=== PATIENT | female | born 1950 | race Caucasian/White ===

== ENCOUNTER → 2017-03-14 | Outpatient (CLI) | payer MEDICARE, OTHER ==
[~2017-03-14] MED LIST: ALBU8.5H IH; ALPR0.255 PO; ASPI-1093 PO; ATOR40TA28 PO; BREO PO; CARI350 PO; CETI-193 PO; CHOL200035 PO; CHOL500050 PO; CYCL10 PO; DESV50TA PO; DICY20 PO; ESOM20CA31 PO; EZET10 PO; FURO40 PO; HYDR-3965 PO; INSLAN SQ; INSU100V9 SQ; ISOS60TA4 PO; LEVO88TA4 PO; LISI-662 PO; METF500T PO; METF500T4 PO; METO-296 PO; METO100XL PO; MOME17N NS; SITA100 PO; TEMA15CA PO; TICA90TA PO; TIOT185 IH
[2017-03-14 13:49] LABS: CALCIUM, TOTAL 10.1 mg/dL (8.8-10.5); CREATININE 1.41 mg/dL (0.60-1.30); POTASSIUM 5.3 mmol/L (3.5-5.1)
== END | disposition home or self-care (01) ==
LOC: LABPV 12:01
PROVIDERS: ATTEND Internal Medicine Critical Care Medicine
DX: R91.1 Solitary pulmonary nodule (principal)

== ENCOUNTER → 2017-03-21 | Outpatient (CLI) | payer MEDICARE, OTHER ==
[~2017-03-21] VITALS: Ht 172.7 cm; Wt 101.5 kg
[~2017-03-21] MED LIST changes: +CHL25 PO; +ELUX75TA PO; +FENO160 PO; +LOPE2 PO; +MAGN250T2 PO; +SPIR25 PO; +VITA400T9 PO; +VITAMIN B12 PO
[2017-03-21 11:20] VITALS: BP 126/68
== END | disposition home or self-care (01) ==
LOC: SRCNTR 10:58
PROVIDERS: ATTEND Internal Medicine Critical Care Medicine
DX: I10 Essential (primary) hypertension (principal); J44.1 Chronic obstructive pulmonary disease with (acute) exacerbation; R91.1 Solitary pulmonary nodule; I25.2 Old myocardial infarction; I25.10 Atherosclerotic heart disease of native coronary artery without angina pectoris; E11.9 Type 2 diabetes mellitus without complications; E78.5 Hyperlipidemia, unspecified; F32.9 Major depressive disorder, single episode, unspecified; Z87.891 Personal history of nicotine dependence
CPT/HCPCS: G0463

== ENCOUNTER → 2017-07-26 | Outpatient (CLI) | payer MEDICARE, OTHER ==
[~2017-07-26] VITALS: Ht 172.7 cm; Wt 100.4 kg
[~2017-07-26] MED LIST changes: -ALBU8.5H IH; +ALBU8.5H8 IH; -ASPI-1093 PO; +ASPI-1182 PO; -CHOL500050 PO; +ROSU20 PO
[2017-07-26 13:59] VITALS: BP 115/61
== END | disposition home or self-care (01) ==
LOC: SRCNTR 13:37
PROVIDERS: ATTEND Internal Medicine Critical Care Medicine
DX: J44.1 Chronic obstructive pulmonary disease with (acute) exacerbation (principal); R91.1 Solitary pulmonary nodule; I25.10 Atherosclerotic heart disease of native coronary artery without angina pectoris; I10 Essential (primary) hypertension; I25.2 Old myocardial infarction; E78.5 Hyperlipidemia, unspecified; F32.9 Major depressive disorder, single episode, unspecified
CPT/HCPCS: G0463

== ENCOUNTER → 2018-07-04 | Outpatient (CLI) | payer MEDICARE, OTHER ==
[~2018-07-04] VITALS: Ht 172.7 cm; Wt 94.0 kg
[~2018-07-04] MED LIST changes: +METF-960 PO; -METF500T4 PO
[2018-07-04 15:22] VITALS: BP 97/67
== END | disposition home or self-care (01) ==
LOC: SRCNTR 14:18
PROVIDERS: ATTEND Internal Medicine Critical Care Medicine
DX: J44.1 Chronic obstructive pulmonary disease with (acute) exacerbation (principal); R91.1 Solitary pulmonary nodule; I25.10 Atherosclerotic heart disease of native coronary artery without angina pectoris; I10 Essential (primary) hypertension; E66.01 Morbid (severe) obesity due to excess calories; I25.2 Old myocardial infarction
CPT/HCPCS: G0463

== ENCOUNTER → 2019-02-04 | Outpatient (CLI) | payer MEDICARE, OTHER ==
[~2019-02-04] MED LIST changes: +ELUX100T PO; -ELUX75TA PO; -ESOM20CA31 PO; -FURO40 PO; -INSU100V9 SQ; -MAGN250T2 PO; +RABE20TA60 PO; -ROSU20 PO; +ROSU20TA23 PO
== END | disposition home or self-care (01) ==
LOC: RADPV 14:31
PROVIDERS: ATTEND Internal Medicine Critical Care Medicine
DX: J98.11 Atelectasis (principal); M85.88 Other specified disorders of bone density and structure, other site

== ENCOUNTER → 2019-03-09 | Outpatient (CLI) | payer MEDICARE, OTHER ==
[~2019-03-09] MED LIST changes: +FLUT1AER IH; +LABE100T5 PO; +NITR0.4T50 SL
[2019-03-09 13:04] LABS: ALBUMIN 3.8 g/dL (3.4-5.0); BILIRUBIN,TOTAL 0.1 mg/dL (0.1-1.0); CREATININE 1.1 mg/dL (0.60-1.30); POTASSIUM 4.5 mmol/L (3.5-5.1); TOTAL PROTEIN, SERUM 7.1 g/dL (6.4-8.2)
== END | disposition home or self-care (01) ==
LOC: LABPV 08:52
PROVIDERS: ATTEND Internal Medicine Critical Care Medicine
DX: R91.1 Solitary pulmonary nodule (principal)

== ENCOUNTER → 2019-06-12 | Outpatient (CLI) | payer MEDICARE, OTHER ==
[~2019-06-12] VITALS: Ht 172.7 cm; Wt 92.0 kg
[~2019-06-12] MED LIST changes: -ATOR40TA28 PO; -BREO PO; -CARI350 PO; -CETI-193 PO; -CHL25 PO; -EZET10 PO; +EZET10TA13 PO; -FENO160 PO; -INSLAN SQ; -METF-960 PO; -METO100XL PO; -MOME17N NS; -SITA100 PO; -SPIR25 PO
[2019-06-12 09:41] VITALS: BP 128/55
== END | disposition home or self-care (01) ==
LOC: SRCNTR 09:40
PROVIDERS: ATTEND Internal Medicine Critical Care Medicine
DX: J44.9 Chronic obstructive pulmonary disease, unspecified (principal); R91.1 Solitary pulmonary nodule; I25.2 Old myocardial infarction; I25.10 Atherosclerotic heart disease of native coronary artery without angina pectoris; I10 Essential (primary) hypertension; E66.9 Obesity, unspecified
CPT/HCPCS: G0463

== ENCOUNTER → 2020-12-01 | Outpatient (CLI) | payer MEDICARE, OTHER ==
[~2020-12-01] VITALS: Ht 172.7 cm; Wt 94.5 kg
[~2020-12-01] MED LIST changes: -ASPI-1182 PO; +ASPI-1444 PO; -DICY20 PO; +DICY20TA2 PO; +INSLAN SQ; -ISOS60TA4 PO; +ISOS60TA77 PO; -LISI-662 PO; +LISI-894 PO; -ROSU20TA23 PO; +ROSU20TA73 PO
[2020-12-01 11:46] VITALS: BP 105/57
== END | disposition home or self-care (01) ==
LOC: SRCNTR 10:36
PROVIDERS: ATTEND Internal Medicine Critical Care Medicine
DX: J44.1 Chronic obstructive pulmonary disease with (acute) exacerbation (principal); R91.1 Solitary pulmonary nodule; I25.2 Old myocardial infarction; I25.10 Atherosclerotic heart disease of native coronary artery without angina pectoris; I10 Essential (primary) hypertension; E66.01 Morbid (severe) obesity due to excess calories; E11.9 Type 2 diabetes mellitus without complications; E78.5 Hyperlipidemia, unspecified; F32.9 Major depressive disorder, single episode, unspecified; Z87.891 Personal history of nicotine dependence
CPT/HCPCS: G0463

== ENCOUNTER → 2020-12-01 | Outpatient (CLI) | payer MEDICARE, OTHER | END | disposition home or self-care (01) | LOC: RADPV 12:46 | PROVIDERS: ATTEND Internal Medicine Critical Care Medicine | DX: J98.11 Atelectasis (principal); I70.0 Atherosclerosis of aorta; M47.814 Spondylosis without myelopathy or radiculopathy, thoracic region; J45.909 Unspecified asthma, uncomplicated | CPT/HCPCS: 71046; 71046-TC ==

== ENCOUNTER → 2020-12-08 | Outpatient (CLI) | payer MEDICARE, OTHER ==
[~2020-12-08] VITALS: Ht 172.7 cm; Wt 96.7 kg
[2020-12-08 13:55] VITALS: BP 128/71
== END | disposition home or self-care (01) ==
LOC: SRCNTR 13:34
PROVIDERS: ATTEND Internal Medicine Cardiovascular Disease
DX: I10 Essential (primary) hypertension (principal); E11.9 Type 2 diabetes mellitus without complications; I25.10 Atherosclerotic heart disease of native coronary artery without angina pectoris; J44.9 Chronic obstructive pulmonary disease, unspecified; E78.5 Hyperlipidemia, unspecified; E66.9 Obesity, unspecified
CPT/HCPCS: 93005; G0463

== ENCOUNTER → 2020-12-29 | Outpatient (CLI) | payer MEDICARE, OTHER ==
[~2020-12-29] MED LIST changes: -EZET10TA13 PO; +EZET10TA57 PO; +REGADENOSON 0.4 MG/5 ML PF SYRINGE IVP ONE; +SESTAMIBI TC99M/UD ISOTOPE 1 EA INJ INJ ONE
[2020-12-29 08:50] VITALS: BP 137/62
[2020-12-29 11:27] VITALS: BP 164/68
== END | disposition home or self-care (01) ==
LOC: CARDMN 08:43
PROVIDERS: ATTEND Internal Medicine Cardiovascular Disease
DX: R06.02 Shortness of breath (principal); R07.9 Chest pain, unspecified; R06.2 Wheezing
CPT/HCPCS: 78452; 93017; 93306; A9500

== ENCOUNTER → 2021-01-10 | Outpatient (CLI) | payer MEDICARE, OTHER ==
[~2021-01-10] VITALS: Ht 172.7 cm; Wt 96.7 kg
[~2021-01-10] MED LIST changes: -REGADENOSON 0.4 MG/5 ML PF SYRINGE IVP ONE; -SESTAMIBI TC99M/UD ISOTOPE 1 EA INJ INJ ONE
[2021-01-10 14:30] VITALS: BP 123/61
== END | disposition home or self-care (01) ==
LOC: SRCNTR 13:57
PROVIDERS: ATTEND Internal Medicine Cardiovascular Disease
DX: I25.10 Atherosclerotic heart disease of native coronary artery without angina pectoris (principal); I10 Essential (primary) hypertension; E11.9 Type 2 diabetes mellitus without complications; E66.9 Obesity, unspecified; E78.5 Hyperlipidemia, unspecified; J44.9 Chronic obstructive pulmonary disease, unspecified; Z79.82 Long term (current) use of aspirin; Z79.899 Other long term (current) drug therapy; Z88.8 Allergy status to other drugs, medicaments and biological substances; Z91.040 Latex allergy status
CPT/HCPCS: G0463

== ENCOUNTER → 2021-02-14 | Outpatient (CLI) | payer MEDICARE, OTHER ==
[~2021-02-14] VITALS: Ht 172.7 cm; Wt 94.6 kg
[2021-02-14 14:12] VITALS: BP 143/77
== END | disposition home or self-care (01) ==
LOC: SRCNTR 13:26
PROVIDERS: ATTEND Internal Medicine Cardiovascular Disease
DX: I10 Essential (primary) hypertension (principal); E11.9 Type 2 diabetes mellitus without complications; E78.5 Hyperlipidemia, unspecified; J44.9 Chronic obstructive pulmonary disease, unspecified; D64.9 Anemia, unspecified; I25.10 Atherosclerotic heart disease of native coronary artery without angina pectoris; E66.9 Obesity, unspecified
CPT/HCPCS: G0463; Z7500

== ENCOUNTER → 2021-03-01 | Outpatient (CLI) | payer MEDICARE, OTHER ==
[~2021-03-01] VITALS: Ht 175.3 cm; Wt 91.3 kg
[2021-03-01 10:18] VITALS: BP 139/75
== END | disposition home or self-care (01) ==
LOC: SRCNTR 09:32
PROVIDERS: ATTEND Internal Medicine Critical Care Medicine
DX: J44.1 Chronic obstructive pulmonary disease with (acute) exacerbation (principal); I25.10 Atherosclerotic heart disease of native coronary artery without angina pectoris; I10 Essential (primary) hypertension; I25.2 Old myocardial infarction; R91.1 Solitary pulmonary nodule; E66.01 Morbid (severe) obesity due to excess calories
CPT/HCPCS: G0463

== ENCOUNTER → 2021-04-21 | Outpatient (CLI) | payer MEDICARE, OTHER ==
[~2021-04-21] VITALS: Ht 172.7 cm; Wt 92.3 kg
[2021-04-21 10:01] VITALS: BP 116/73
== END | disposition home or self-care (01) ==
LOC: SRCNTR 09:03
PROVIDERS: ATTEND Internal Medicine Cardiovascular Disease
DX: I10 Essential (primary) hypertension (principal); E11.9 Type 2 diabetes mellitus without complications; E78.5 Hyperlipidemia, unspecified; J44.9 Chronic obstructive pulmonary disease, unspecified; I25.10 Atherosclerotic heart disease of native coronary artery without angina pectoris; D50.9 Iron deficiency anemia, unspecified; E66.9 Obesity, unspecified
CPT/HCPCS: 93005; G0463

== ENCOUNTER → 2021-06-28 | Outpatient (CLI) | payer MEDICARE, OTHER ==
[~2021-06-28] VITALS: Ht 172.7 cm; Wt 90.6 kg
[~2021-06-28] MED LIST changes: -CYCL10 PO; +CYCL10TA17 PO
[2021-06-28 10:47] VITALS: BP 160/64
== END | disposition home or self-care (01) ==
LOC: SRCNTR 10:09
PROVIDERS: ATTEND Internal Medicine Cardiovascular Disease
DX: I25.10 Atherosclerotic heart disease of native coronary artery without angina pectoris (principal); J44.9 Chronic obstructive pulmonary disease, unspecified; E11.9 Type 2 diabetes mellitus without complications; I10 Essential (primary) hypertension; E66.01 Morbid (severe) obesity due to excess calories; Z95.5 Presence of coronary angioplasty implant and graft
CPT/HCPCS: 93005; G0463

== ENCOUNTER → 2021-07-18 | Outpatient (CLI) | payer MEDICARE, OTHER ==
[~2021-07-18] VITALS: Ht 175.3 cm; Wt 93.2 kg
[2021-07-18 10:38] VITALS: BP 130/62
== END | disposition home or self-care (01) ==
LOC: SRCNTR 09:58
PROVIDERS: ATTEND Internal Medicine Critical Care Medicine
DX: J44.1 Chronic obstructive pulmonary disease with (acute) exacerbation (principal); R91.1 Solitary pulmonary nodule; I25.10 Atherosclerotic heart disease of native coronary artery without angina pectoris; I10 Essential (primary) hypertension; I25.2 Old myocardial infarction; E66.01 Morbid (severe) obesity due to excess calories
CPT/HCPCS: G0463; Z7500

== ENCOUNTER → 2021-09-22 | Outpatient (CLI) | payer MEDICARE, OTHER ==
[~2021-09-22] VITALS: Ht 175.3 cm; Wt 89.0 kg
[2021-09-22 11:04] VITALS: BP 118/62
== END | disposition home or self-care (01) ==
LOC: SRCNTR 10:37
PROVIDERS: ATTEND Internal Medicine Critical Care Medicine
DX: J44.1 Chronic obstructive pulmonary disease with (acute) exacerbation (principal); I11.9 Hypertensive heart disease without heart failure; I25.10 Atherosclerotic heart disease of native coronary artery without angina pectoris; E66.01 Morbid (severe) obesity due to excess calories; I25.2 Old myocardial infarction; R91.1 Solitary pulmonary nodule
CPT/HCPCS: G0463; Z7500

== ENCOUNTER → 2021-09-25 | Outpatient (CLI) | payer MEDICARE, OTHER ==
[~2021-09-25] VITALS: Ht 175.3 cm; Wt 89.0 kg
[2021-09-25 10:15] VITALS: BP 119/52
== END | disposition home or self-care (01) ==
LOC: SRCNTR 09:44
PROVIDERS: ATTEND Internal Medicine Cardiovascular Disease
DX: J44.9 Chronic obstructive pulmonary disease, unspecified (principal); I10 Essential (primary) hypertension; E78.5 Hyperlipidemia, unspecified; I25.10 Atherosclerotic heart disease of native coronary artery without angina pectoris; E11.9 Type 2 diabetes mellitus without complications; E66.01 Morbid (severe) obesity due to excess calories; D50.9 Iron deficiency anemia, unspecified
CPT/HCPCS: 93005; G0463

== ENCOUNTER 2021-09-27 06:45 | Inpatient (IN) | payer MEDICARE, OTHER ==
[2021-09-27] VITALS (15 sets, daily range): BP systolic 113–171; BP diastolic 60–97
[~2021-09-27] VITALS: Ht 172.7 cm; Wt 89.1 kg
[2021-09-27] MEDS ORDERED: SODIUM CHLORIDE 0.9% 1,000 ML IV ONE (07:00)
[2021-09-27 07:34] LABS: BASOPHILS % (AUTO) 0.6 % (0.0-2.0); EOSINOPHILS % (AUTO) 9.3 % (1.0-6.0); HEMATOCRIT 39.5 % (36-46); HEMOGLOBIN 13.1 g/dL (12.0-16.0); LYMPHOCYTES # (AUTO) 3.2 K/uL (1.0-4.8); LYMPHOCYTES % (AUTO) 42.7 % (22.0-44.0); MEAN CORPUSCULAR HEMOGLOBIN 28.8 pg (26.0-34.0); MEAN CORPUSCULAR HGB CONC 33.1 G/dL (31.0-37.0); MEAN CORPUSCULAR VOLUME 87 fL (80-100); MONOCYTES # (AUTO) 0.4 K/uL (0.1-1.0); MONOCYTES % (AUTO) 5.6 % (2.0-9.0); NEUTROPHILS # (AUTO) 3.1 K/uL (1.8-7.7); NEUTROPHILS % (AUTO) 41.8 % (40.0-70.0); PLATELET COUNT (AUTO) 291 K/uL (150-450); RED BLOOD CELL COUNT(AUTO) 4.53 MIL/uL (4.00-5.20); RED CELL DISTRIBUTION WIDTH 12.9 % (11.5-14.5)
[2021-09-27 07:48] LABS: CALCIUM, TOTAL 8.7 mg/dL (8.8-10.5); CREATININE 0.98 mg/dL (0.60-1.30); POTASSIUM 3.8 mmol/L (3.5-5.1)
[2021-09-27 07:51] LABS: COVID AG,FIA SOURCE NASOPHARYNGEAL
[2021-09-27] MEDS ORDERED: SODIUM CHLORIDE 0.9% 1,000 ML ONE (07:53)
[2021-09-27 07:54] LABS: ALBUMIN 3.9 g/dL (3.4-5.0); BILIRUBIN,TOTAL 0.2 mg/dL (0.1-1.0); TOTAL PROTEIN, SERUM 7.2 g/dL (6.4-8.2)
[2021-09-27 07:56] LABS: PROTHROMBIN TIME 10.7 SEC (9.4-11.6)
[2021-09-27] MEDS ORDERED: LIDOCAINE/PF 1% 30 ML VIAL ONE (10:24)
[2021-09-27] MEDS ORDERED: IOHEXOL 300 MG/ML 50 ML VIAL ONE ×2 (10:24→11:37)
[2021-09-27] MEDS ORDERED: SODIUM BICARBONATE 50 MEQ/50 ML VIAL ONE (10:24)
[2021-09-27] MEDS ORDERED: IOHEXOL 300 MG/ML 150 ML VIAL ONE (10:24)
[2021-09-27] MEDS ORDERED: HEPARIN SODIUM 1000 UNITS/NS 1,000 ML ONE (10:24)
[2021-09-27] MEDS ORDERED: IOHEXOL 300 MG/ML 100 ML VIAL ONE (10:24)
[2021-09-27] MEDS ORDERED: CHLORHEXIDINE GLUCONATE 4% 118 ML TOPICAL LIQUID TP ONE (11:00)
[2021-09-27] MEDS ORDERED: FentaNYL CITRATE PF 100 MCG/2 ML VIAL ONE (11:17)
[2021-09-27] MEDS ORDERED: MIDAZOLAM HCL 2 MG/2 ML VIAL ONE (11:18)
[2021-09-27] MEDS ORDERED: IOHEXOL 300 MG/ML 150 ML VIAL IARTER ONE (11:30)
[2021-09-27] MEDS ORDERED: LIDOCAINE 1% 30 ML/SOD BICARB 8.4% 4 ML SQ ONE (11:30)
[2021-09-27] MEDS ORDERED: FentaNYL CITRATE PF 100 MCG/2 ML VIAL IVP ONE (11:30)
[2021-09-27] MEDS ORDERED: MIDAZOLAM HCL 2 MG/2 ML VIAL IVP ONE (11:30)
[2021-09-27] MEDS ORDERED: HEPARIN SODIUM 1000 UNITS/NS 1,000 ML IARTER ONE (11:30)
[2021-09-27] MEDS ORDERED: TICAGRELOR 90 MG TABLET ONE (11:35)
[2021-09-27] MEDS ORDERED: ASPIRIN 81 MG CHEWABLE TABLET ONE (11:35)
[2021-09-27] MEDS ORDERED: VERAPAMIL HCL 2.5 MG/ML 2 ML VIAL ONE (11:39)
[2021-09-27] MEDS ORDERED: TICAGRELOR 90 MG TABLET PO ONE (11:45)
[2021-09-27] MEDS ORDERED: ASPIRIN 81 MG CHEWABLE TABLET PO ONE (11:45)
[2021-09-27] MEDS ORDERED: HEPARIN SODIUM,PORCINE 5,000 UNITS/ML VIAL IVP ONE (11:45)
[2021-09-27] MEDS ORDERED: IOHEXOL 300 MG/ML 50 ML VIAL IARTER ONE (12:00)
[2021-09-27] MEDS ORDERED: NITROGLYCERIN/D5W 50 MG/250 ML IV BOTTLE ICOR ONE (12:00)
[2021-09-27] MEDS ORDERED: VERAPAMIL HCL 2.5 MG/ML 2 ML VIAL ICOR ONE (12:00)
[2021-09-27] MEDS ORDERED: ACETAMINOPHEN 325 MG TABLET PO PRN ×2 (12:15→16:30)
[2021-09-27] MEDS ORDERED: DEXTROSE 50%-WATER 25 GM/50 ML SYRINGE IVP PRN (12:15)
[2021-09-27] MEDS ORDERED: ALPRAZolam 0.25 MG TABLET PO PRN ×2 (12:15→13:15)
[2021-09-27] MEDS ORDERED: ALBUTEROL SULFATE HFA 90 MCG/PUFF 8 GM INHALER IH PRN (12:15)
[2021-09-27] MEDS ORDERED: OxyCODONE HCL/ACETAMINOPHEN 5-325 MG TABLET PO PRN (12:15)
[2021-09-27] MEDS ORDERED: NITROGLYCERIN 0.4 MG SUBLINGUAL TABLET #25 SL PRN (13:15)
[2021-09-27] MEDS ORDERED: LOPERAMIDE HCL 2 MG CAPSULE PO PRN (13:15)
[2021-09-27] MEDS ORDERED: HYDROCODONE/ACETAMINOPHEN 5-325 MG TABLET PO PRN (13:15)
[2021-09-27] MEDS ORDERED: METOCLOPRAMIDE HCL 10 MG TABLET PO SCH (16:00)
[2021-09-27] MEDS ORDERED: ONDANSETRON HCL 4 MG/2 ML VIAL IVP PRN (16:30)
[2021-09-27] MEDS: DICYCLOMINE HCL 20 MG TABLET PO SCH ×2 (18:36→21:52)
[2021-09-27] MEDS: CYCLOBENZAPRINE HCL 10 MG TABLET PO SCH ×2 (18:36→21:54)
[2021-09-27] MEDS: METOCLOPRAMIDE HCL 10 MG TABLET PO SCH (18:37)
[2021-09-27] MEDS: INSULIN LISPRO 100 UNITS/ML SQ PRN (19:15)
[2021-09-27 19:56] LABS: GLUCOMETER DEV NAME(LOC) 5N.1C; GLUCOSE,POINT OF CARE 237 MG/DL (70-110)
[2021-09-27] MEDS ORDERED: TICAGRELOR 90 MG TABLET PO SCH (21:00)
[2021-09-27] MEDS ORDERED: ROSUVASTATIN CALCIUM 20 MG TABLET PO SCH ×2 (21:00)
[2021-09-27] MEDS ORDERED: ASPIRIN 81 MG DR TABLET PO SCH (21:00)
[2021-09-27] MEDS ORDERED: TEMAZEPAM 15 MG CAPSULE PO SCH ×2 (21:00)
[2021-09-27] MEDS ORDERED: EZETIMIBE 10 MG TABLET PO SCH ×2 (21:00)
[2021-09-27] MEDS ORDERED: LABETALOL HCL 100 MG TABLET PO SCH (21:00)
[2021-09-27] MEDS: DOCUSATE SODIUM 100 MG CAPSULE PO SCH (21:51)
[2021-09-27] MEDS: LABETALOL HCL 100 MG TABLET PO SCH (21:52)
[2021-09-27] MEDS: TICAGRELOR 90 MG TABLET PO SCH (21:53)
[2021-09-27] MEDS: INSULIN GLARGINE,HUM.REC.ANLOG 100 UNITS/ML SQ SCH (22:12)
[2021-09-27] MEDS: LISINOPRIL 20 MG TABLET PO SCH (23:04)
[2021-09-28] VITALS: BP 118/53
[2021-09-28 00:54] VITALS: BP 135/79
[2021-09-28 04:52] VITALS: BP 125/71
[2021-09-28] MEDS: INSULIN LISPRO 100 UNITS/ML SQ PRN ×2 (05:37→12:50)
[2021-09-28 06:01] LABS: BASOPHILS % (AUTO) 0.2 % (0.0-2.0); EOSINOPHILS % (AUTO) 4.2 % (1.0-6.0); HEMATOCRIT 38.5 % (36-46); HEMOGLOBIN 12.9 g/dL (12.0-16.0); LYMPHOCYTES # (AUTO) 2.3 K/uL (1.0-4.8); LYMPHOCYTES % (AUTO) 26.8 % (22.0-44.0); MEAN CORPUSCULAR HEMOGLOBIN 28.9 pg (26.0-34.0); MEAN CORPUSCULAR HGB CONC 33.5 G/dL (31.0-37.0); MEAN CORPUSCULAR VOLUME 86 fL (80-100); MONOCYTES # (AUTO) 0.6 K/uL (0.1-1.0); MONOCYTES % (AUTO) 6.4 % (2.0-9.0); NEUTROPHILS # (AUTO) 5.4 K/uL (1.8-7.7); NEUTROPHILS % (AUTO) 62.4 % (40.0-70.0); PLATELET COUNT (AUTO) 263 K/uL (150-450); RED BLOOD CELL COUNT(AUTO) 4.45 MIL/uL (4.00-5.20)
[2021-09-28] MEDS: METOCLOPRAMIDE HCL 10 MG TABLET PO SCH ×2 (06:09→09:44)
[2021-09-28 06:24] LABS: ALANINE AMINOTRANSFERASE 33 U/L (12-78); ALKALINE PHOSPHATASE 34 U/L (46-116); ANION GAP 13 mmol/L (8-16); ASPARTATE AMINOTRANSFERASE 22 U/L (15-37); BILIRUBIN,TOTAL 0.3 mg/dL (0.1-1.0); CALCIUM, TOTAL 9.9 mg/dL (8.8-10.5); CARBON DIOXIDE 26 mmol/L (22-29); CHLORIDE 103 mmol/L (98-107); CREATININE 0.82 mg/dL (0.60-1.30); GLOMERULAR FILTR. RATE CALC > 60 mL/min (>60); GLUCOSE,RANDOM 161 mg/dL (70-110); POTASSIUM 4.1 mmol/L (3.5-5.1); SODIUM SERUM 142 mmol/L (136-145); TOTAL PROTEIN, SERUM 7.2 g/dL (6.4-8.2); UREA NITROGEN, BLOOD 16 mg/dL (7-18)
[2021-09-28] MEDS ORDERED: LEVOTHYROXINE SODIUM 88 MCG TABLET PO SCH (06:30)
[2021-09-28 07:31] LABS: GLUCOMETER DEV NAME(LOC) 5N.1C; GLUCOSE,POINT OF CARE 174 MG/DL (70-110)
[2021-09-28] MEDS ORDERED: ISOSORBIDE MONONITRATE 60 MG ER TABLET PO SCH ×2 (09:00)
[2021-09-28] MEDS ORDERED: RABEPRAZOLE SODIUM 20 MG PO SCH (09:00)
[2021-09-28] MEDS ORDERED: FAMOTIDINE 20 MG TABLET PO SCH (09:00)
[2021-09-28] MEDS ORDERED: ASPIRIN 81 MG CHEWABLE TABLET PO SCH (09:00)
[2021-09-28] MEDS ORDERED: FLUTICASONE/VILANTEROL 100-25 MCG/INH INHALER [14] IH SCH ×2 (09:00)
[2021-09-28] MEDS: DOCUSATE SODIUM 100 MG CAPSULE PO SCH (09:43)
[2021-09-28] MEDS: LISINOPRIL 20 MG TABLET PO SCH (09:43)
[2021-09-28] MEDS: LABETALOL HCL 100 MG TABLET PO SCH (09:44)
[2021-09-28] MEDS: TICAGRELOR 90 MG TABLET PO SCH (09:45)
[2021-09-28] MEDS: DICYCLOMINE HCL 20 MG TABLET PO SCH (09:46)
[2021-09-28] MEDS: CYCLOBENZAPRINE HCL 10 MG TABLET PO SCH (09:46)
[2021-09-28] MEDS: INSULIN GLARGINE,HUM.REC.ANLOG 100 UNITS/ML SQ SCH ×2 (10:46→10:50)
[2021-09-28 11:48] VITALS: BP 150/74
[2021-09-28 14:26] LABS: GLUCOMETER DEV NAME(LOC) 5N.3; GLUCOSE,POINT OF CARE 191 MG/DL (70-110)
[2021-09-28 14:26] LABS: GLUCOMETER DEV NAME(LOC) 5N.3; GLUCOSE,POINT OF CARE 166 MG/DL (70-110)
== END 2021-09-28 16:00 | disposition home or self-care (01) | DRG 247 ==
LOC: CATHLAB 06:45 → UNDOADMOB 06:46 → 5N 06:46 → OBSVTOIN 13:51 → 5N 13:51
PROVIDERS: ADMIT Internal Medicine Cardiovascular Disease; ATTEND Internal Medicine Cardiovascular Disease
PROC: 4A023N7 Measurement of Cardiac Sampling and Pressure, Left Heart, Percutaneous Approach (ICD-10-PCS; principal; 2021-09-27)
PROC: 027034Z Dilation of Coronary Artery, One Artery with Drug-eluting Intraluminal Device, Percutaneous Approach (ICD-10-PCS; 2021-09-27)
PROC: B2111ZZ Fluoroscopy of Multiple Coronary Arteries using Low Osmolar Contrast (ICD-10-PCS; 2021-09-27)
PROC: B2151ZZ Fluoroscopy of Left Heart using Low Osmolar Contrast (ICD-10-PCS; 2021-09-27)
DX: T82.855A Stenosis of coronary artery stent, initial encounter (principal); I25.119 Atherosclerotic heart disease of native coronary artery with unspecified angina pectoris; Z20.822 Contact with and (suspected) exposure to COVID-19; E03.9 Hypothyroidism, unspecified; E11.9 Type 2 diabetes mellitus without complications; Y84.0 Cardiac catheterization as the cause of abnormal reaction of the patient, or of later complication, without mention of misadventure at the time of the procedure; I10 Essential (primary) hypertension; E78.5 Hyperlipidemia, unspecified; J44.9 Chronic obstructive pulmonary disease, unspecified; Z83.3 Family history of diabetes mellitus; Z88.8 Allergy status to other drugs, medicaments and biological substances; Z79.899 Other long term (current) drug therapy; Z91.040 Latex allergy status; Y92.89 Other specified places as the place of occurrence of the external cause
CPT/HCPCS: 80053; 82962; 85025; 85610; 85730; 92920; 92928; 93005; J1644; J1815; J2250; J3010; J3490; J7030; Q9967; 36415-L1; 36415-TC; C9803; Z7610

== ENCOUNTER → 2021-10-04 | Outpatient (CLI) | payer MEDICARE, OTHER ==
[~2021-10-04] MED LIST changes: -ALPR0.255 PO; -CYCL10TA17 PO; -DESV50TA PO; -DICY20TA2 PO; -ELUX100T PO; -EZET10TA57 PO; -FLUT1AER IH; -HYDR-3965 PO; -INSLAN SQ; -ISOS60TA77 PO; -LABE100T5 PO; -LOPE2 PO; -METF500T PO; -METO-296 PO; -NITR0.4T50 SL; -RABE20TA60 PO; -ROSU20TA73 PO; -TEMA15CA PO; -VITA400T9 PO; -VITAMIN B12 PO
[2021-10-04 11:57] LABS: BASOPHILS % (AUTO) 0.6 % (0.0-2.0); EOSINOPHILS % (AUTO) 6.9 % (1.0-6.0); HEMATOCRIT 34.6 % (36-46); HEMOGLOBIN 11.5 g/dL (12.0-16.0); LYMPHOCYTES # (AUTO) 2.7 K/uL (1.0-4.8); LYMPHOCYTES % (AUTO) 37.5 % (22.0-44.0); MEAN CORPUSCULAR HGB CONC 33.2 G/dL (31.0-37.0); MEAN CORPUSCULAR VOLUME 87 fL (80-100); MONOCYTES # (AUTO) 0.5 K/uL (0.1-1.0); MONOCYTES % (AUTO) 7.1 % (2.0-9.0); NEUTROPHILS # (AUTO) 3.5 K/uL (1.8-7.7); NEUTROPHILS % (AUTO) 47.9 % (40.0-70.0); PLATELET COUNT (AUTO) 301 K/uL (150-450); RED BLOOD CELL COUNT(AUTO) 3.97 MIL/uL (4.00-5.20); RED CELL DISTRIBUTION WIDTH 12.7 % (11.5-14.5)
[2021-10-04 12:01] LABS: APPEARANCE,URINE CLEAR (CLEAR); BILIRUBIN,URINE NEGATIVE (NEGATIVE); GLUCOSE, URINE (UA) NEGATIVE (NEGATIVE); KETONES,URINE NEGATIVE (NEGATIVE); LEUKOCYTE ESTERASE ,URINE NEGATIVE (NEGATIVE); NITRATE,URINE NEGATIVE (NEGATIVE); OCCULT BLOOD,URINE NEGATIVE (NEGATIVE); PH,URINE 5.5 (5.0-8.0); PROTEIN,URINE NEGATIVE (NEGATIVE); UROBILINOGEN,URINE 0.2 mg/dL (<=1.0)
[2021-10-04 12:16] LABS: ALBUMIN 3.7 g/dL (3.4-5.0); BILIRUBIN,TOTAL 0.3 mg/dL (0.1-1.0); CALCIUM, TOTAL 8.9 mg/dL (8.8-10.5); CREATININE 0.98 mg/dL (0.60-1.30); POTASSIUM 4.7 mmol/L (3.5-5.1); TOTAL PROTEIN, SERUM 6.9 g/dL (6.4-8.2)
[2021-10-04 12:48] LABS: COVID AG,FIA SOURCE NASAL SWAB
== END | disposition home or self-care (01) ==
LOC: MSR 11:15
PROVIDERS: ATTEND Internal Medicine Cardiovascular Disease
DX: I25.10 Atherosclerotic heart disease of native coronary artery without angina pectoris (principal); M47.814 Spondylosis without myelopathy or radiculopathy, thoracic region; Z20.822 Contact with and (suspected) exposure to COVID-19; E11.9 Type 2 diabetes mellitus without complications; J18.9 Pneumonia, unspecified organism; R50.9 Fever, unspecified
CPT/HCPCS: 36415; 71046; 80053; 81003; 85025; 87426; U0003

== ENCOUNTER → 2021-10-04 | Outpatient (CLI) | payer MEDICARE, OTHER ==
[~2021-10-04] VITALS: Ht 175.3 cm; Wt 90.0 kg
[2021-10-04 10:51] VITALS: BP 101/41
== END | disposition home or self-care (01) ==
LOC: SRCNTR 10:46
PROVIDERS: ATTEND Internal Medicine Cardiovascular Disease
DX: I10 Essential (primary) hypertension (principal); J44.9 Chronic obstructive pulmonary disease, unspecified; E78.5 Hyperlipidemia, unspecified; E11.9 Type 2 diabetes mellitus without complications; R50.84 Febrile nonhemolytic transfusion reaction; I25.10 Atherosclerotic heart disease of native coronary artery without angina pectoris; Z95.5 Presence of coronary angioplasty implant and graft
CPT/HCPCS: 71046; 80053; 81003; 85025; G0463; 36415-L1; 36415-TC; U0003

== ENCOUNTER → 2022-01-08 | Outpatient (CLI) | payer MEDICARE, OTHER ==
[~2022-01-08] VITALS: Ht 175.3 cm; Wt 90.0 kg
[2022-01-08 11:12] VITALS: BP 121/61
== END | disposition home or self-care (01) ==
LOC: SRCNTR 10:51
PROVIDERS: ATTEND Internal Medicine Cardiovascular Disease
DX: Z09 Encounter for follow-up examination after completed treatment for conditions other than malignant neoplasm (principal); I10 Essential (primary) hypertension; E11.9 Type 2 diabetes mellitus without complications; E78.5 Hyperlipidemia, unspecified; I25.10 Atherosclerotic heart disease of native coronary artery without angina pectoris; J44.9 Chronic obstructive pulmonary disease, unspecified
CPT/HCPCS: G0463; Z7500

== ENCOUNTER → 2022-03-09 | Outpatient (CLI) | payer MEDICARE, OTHER ==
[~2022-03-09] VITALS: Ht 175.3 cm; Wt 91.5 kg
[2022-03-09 11:40] VITALS: BP 118/70
== END | disposition home or self-care (01) ==
LOC: SRCNTR 11:16
PROVIDERS: ATTEND Internal Medicine Cardiovascular Disease
DX: I10 Essential (primary) hypertension (principal); Z09 Encounter for follow-up examination after completed treatment for conditions other than malignant neoplasm; E11.9 Type 2 diabetes mellitus without complications; E78.5 Hyperlipidemia, unspecified; J44.9 Chronic obstructive pulmonary disease, unspecified; E66.9 Obesity, unspecified; I25.10 Atherosclerotic heart disease of native coronary artery without angina pectoris
CPT/HCPCS: G0463; Z7500

== ENCOUNTER → 2022-05-11 | Outpatient (CLI) | payer MEDICARE, OTHER ==
[2022-05-11 11:43] VITALS: BP 113/61
[2022-05-11 14:06] LABS: GLUCOMETER DEV NAME(LOC) SHC.; GLUCOSE,POINT OF CARE 80 MG/DL (70-110)
[2022-05-11 14:06] LABS: GLUCOMETER DEV NAME(LOC) SHC.; GLUCOSE,POINT OF CARE 52 MG/DL (70-110)
== END | disposition home or self-care (01) ==
LOC: SRCNTR 10:58
PROVIDERS: ATTEND Internal Medicine Cardiovascular Disease
DX: I10 Essential (primary) hypertension (principal); Z09 Encounter for follow-up examination after completed treatment for conditions other than malignant neoplasm; I25.10 Atherosclerotic heart disease of native coronary artery without angina pectoris; E11.9 Type 2 diabetes mellitus without complications; E78.5 Hyperlipidemia, unspecified; J44.9 Chronic obstructive pulmonary disease, unspecified; E66.9 Obesity, unspecified
CPT/HCPCS: 82962; G0463

== ENCOUNTER → 2022-06-07 | Outpatient (CLI) | payer MEDICARE, OTHER ==
[~2022-06-07] VITALS: Ht 174 cm; Wt 91.2 kg
[2022-06-07 13:51] VITALS: BP 109/55
== END | disposition home or self-care (01) ==
LOC: SRCNTR 12:10
PROVIDERS: ATTEND Internal Medicine Pulmonary Disease
DX: I10 Essential (primary) hypertension (principal); J44.1 Chronic obstructive pulmonary disease with (acute) exacerbation; R91.1 Solitary pulmonary nodule; I25.10 Atherosclerotic heart disease of native coronary artery without angina pectoris; E66.01 Morbid (severe) obesity due to excess calories; I25.2 Old myocardial infarction; E11.9 Type 2 diabetes mellitus without complications; E78.5 Hyperlipidemia, unspecified; M79.7 Fibromyalgia; F32.A Depression, unspecified
CPT/HCPCS: G0463

== ENCOUNTER → 2022-07-11 | Outpatient (CLI) | payer MEDICARE, OTHER ==
[~2022-07-11] VITALS: Ht 175.3 cm; Wt 96.5 kg
[2022-07-11 10:29] VITALS: BP 128/58
== END | disposition home or self-care (01) ==
LOC: SRCNTR 10:07
PROVIDERS: ATTEND Internal Medicine Cardiovascular Disease
DX: R94.31 Abnormal electrocardiogram [ECG] [EKG] (principal); Z09 Encounter for follow-up examination after completed treatment for conditions other than malignant neoplasm; I25.10 Atherosclerotic heart disease of native coronary artery without angina pectoris; I10 Essential (primary) hypertension; E11.9 Type 2 diabetes mellitus without complications; E78.5 Hyperlipidemia, unspecified; J44.9 Chronic obstructive pulmonary disease, unspecified; E66.9 Obesity, unspecified; Z95.5 Presence of coronary angioplasty implant and graft
CPT/HCPCS: 93005; G0463

== ENCOUNTER → 2022-07-23 | Outpatient (CLI) | payer MEDICARE, OTHER ==
[~2022-07-23] VITALS: Ht 172.7 cm; Wt 93.0 kg
[2022-07-23 12:45] VITALS: BP 132/61
== END | disposition home or self-care (01) ==
LOC: SRCNTR 11:14 → EDSTATUS 11:20
PROVIDERS: ATTEND Internal Medicine Pulmonary Disease
DX: I10 Essential (primary) hypertension (principal); E11.9 Type 2 diabetes mellitus without complications; E78.5 Hyperlipidemia, unspecified; F32.A Depression, unspecified; M79.7 Fibromyalgia; J44.1 Chronic obstructive pulmonary disease with (acute) exacerbation; R91.1 Solitary pulmonary nodule; I25.10 Atherosclerotic heart disease of native coronary artery without angina pectoris; I25.2 Old myocardial infarction; E66.01 Morbid (severe) obesity due to excess calories
CPT/HCPCS: G0463

== ENCOUNTER → 2022-10-23 | Outpatient (CLI) | payer MEDICARE, OTHER ==
[~2022-10-23] VITALS: Ht 172.7 cm; Wt 91.0 kg
[~2022-10-23] MED LIST changes: +EZET10TA57 PO; +FURO20 PO; +METO25XL PO
[2022-10-23 14:33] VITALS: BP 83/51
== END | disposition home or self-care (01) ==
LOC: SRCNTR 14:07
PROVIDERS: ATTEND Internal Medicine Cardiovascular Disease
DX: R00.0 Tachycardia, unspecified (principal); R94.31 Abnormal electrocardiogram [ECG] [EKG]; Z09 Encounter for follow-up examination after completed treatment for conditions other than malignant neoplasm; I25.10 Atherosclerotic heart disease of native coronary artery without angina pectoris; E11.9 Type 2 diabetes mellitus without complications; I10 Essential (primary) hypertension; E78.5 Hyperlipidemia, unspecified; J44.9 Chronic obstructive pulmonary disease, unspecified
CPT/HCPCS: 93005; G0463

== ENCOUNTER → 2022-12-03 | Outpatient (CLI) | payer MEDICARE, OTHER ==
[~2022-12-03] VITALS: Ht 172.7 cm; Wt 88.0 kg
[~2022-12-03] MED LIST changes: +ISOS60TA77 PO; +IVAB5TAB PO
[2022-12-03 11:16] VITALS: BP 119/59
== END | disposition home or self-care (01) ==
LOC: SRCNTR 10:57
PROVIDERS: ATTEND Internal Medicine Cardiovascular Disease
DX: R94.31 Abnormal electrocardiogram [ECG] [EKG] (principal); Z09 Encounter for follow-up examination after completed treatment for conditions other than malignant neoplasm; I25.10 Atherosclerotic heart disease of native coronary artery without angina pectoris; I10 Essential (primary) hypertension; E11.9 Type 2 diabetes mellitus without complications; E78.5 Hyperlipidemia, unspecified; J44.9 Chronic obstructive pulmonary disease, unspecified; I49.8 Other specified cardiac arrhythmias; Z95.5 Presence of coronary angioplasty implant and graft
CPT/HCPCS: 93005; G0463

== ENCOUNTER → 2022-12-25 | Outpatient (CLI) | payer MEDICARE, OTHER ==
[~2022-12-25] VITALS: Ht 172.7 cm; Wt 91.8 kg
[~2022-12-25] MED LIST changes: +RANO500T27 PO
[2022-12-25 10:29] VITALS: BP 136/82
== END | disposition home or self-care (01) ==
LOC: SRCNTR 10:14
PROVIDERS: ATTEND Internal Medicine Pulmonary Disease
DX: I10 Essential (primary) hypertension (principal); J44.1 Chronic obstructive pulmonary disease with (acute) exacerbation; E11.9 Type 2 diabetes mellitus without complications; E78.5 Hyperlipidemia, unspecified; F32.A Depression, unspecified; M79.7 Fibromyalgia; R91.1 Solitary pulmonary nodule; I25.2 Old myocardial infarction; I25.10 Atherosclerotic heart disease of native coronary artery without angina pectoris; E66.01 Morbid (severe) obesity due to excess calories
CPT/HCPCS: G0463; Z7500

== ENCOUNTER → 2023-01-08 | Outpatient (CLI) | payer MEDICARE, OTHER ==
[~2023-01-08] VITALS: Ht 172.7 cm; Wt 91.0 kg
[2023-01-08 14:56] VITALS: BP 112/62
== END | disposition home or self-care (01) ==
LOC: SRCNTR 14:20
PROVIDERS: ATTEND Internal Medicine Cardiovascular Disease
DX: Z09 Encounter for follow-up examination after completed treatment for conditions other than malignant neoplasm (principal); I25.10 Atherosclerotic heart disease of native coronary artery without angina pectoris; I10 Essential (primary) hypertension; E11.9 Type 2 diabetes mellitus without complications; E78.5 Hyperlipidemia, unspecified; J44.9 Chronic obstructive pulmonary disease, unspecified; I49.8 Other specified cardiac arrhythmias; Z95.5 Presence of coronary angioplasty implant and graft
CPT/HCPCS: G0463

== ENCOUNTER 2023-02-05 15:27 | Emergency (ER) | payer MEDICARE, OTHER ==
[~2023-02-05] VITALS: Ht 172.7 cm; Wt 86.4 kg
[2023-02-05 15:27] VITALS: TEMP 98.8
[~2023-02-05 15:27] MED LIST changes: -CYCL-448 PO; -DIPH25CA85 PO; -HYDR-4808 PO; -METF-1211 PO; -METO5TAB87 PO
[2023-02-05] MEDS ORDERED: METF-1211 PO (15:34)
[2023-02-05] MEDS ORDERED: METO5TAB87 PO (15:34)
[2023-02-05] MEDS ORDERED: CYCL-448 PO (15:34)
[2023-02-05] MEDS ORDERED: DIPH25CA85 PO (15:34)
[2023-02-05] MEDS ORDERED: HydrOXYzine PAMOATE 50 MG CAPSULE PO ONE (15:45)
[2023-02-05 16:05] LABS: BASOPHILS % (AUTO) 0.5 % (0.0-2.0); EOSINOPHILS % (AUTO) 0.9 % (1.0-6.0); HEMATOCRIT 34.5 % (36-46); HEMOGLOBIN 11.5 g/dL (12.0-16.0); LYMPHOCYTES # (AUTO) 0.4 K/uL (1.0-4.8); LYMPHOCYTES % (AUTO) 6.1 % (22.0-44.0); MEAN CORPUSCULAR HEMOGLOBIN 28.3 pg (26.0-34.0); MEAN CORPUSCULAR HGB CONC 33.2 G/dL (31.0-37.0); MEAN CORPUSCULAR VOLUME 85 fL (80-100); MONOCYTES # (AUTO) 0.5 K/uL (0.1-1.0); MONOCYTES % (AUTO) 7.4 % (2.0-9.0); NEUTROPHILS # (AUTO) 6.2 K/uL (1.8-7.7); NEUTROPHILS % (AUTO) 85.1 % (40.0-70.0); PLATELET COUNT (AUTO) 233 K/uL (150-450); RED BLOOD CELL COUNT(AUTO) 4.05 MIL/uL (4.00-5.20); RED CELL DISTRIBUTION WIDTH 13.1 % (11.5-14.5)
[2023-02-05 16:11] LABS: CALCIUM, TOTAL 9.1 mg/dL (8.8-10.5); CREATININE 1.19 mg/dL (0.60-1.30); POTASSIUM 3.8 mmol/L (3.5-5.1)
[2023-02-05 16:17] LABS: ALBUMIN 3.7 g/dL (3.4-5.0); BILIRUBIN,TOTAL 0.3 mg/dL (0.1-1.0)
[2023-02-05] MEDS ORDERED: HYDR-4808 PO (16:46)
[2023-02-05 16:54] VITALS: BP 131/64; PULSE 98; RESP 22
== END 2023-02-05 17:10 | disposition home or self-care (01) ==
LOC: EMS 15:27
DX: F41.9 Anxiety disorder, unspecified (principal); I25.119 Atherosclerotic heart disease of native coronary artery with unspecified angina pectoris; I50.9 Heart failure, unspecified; J44.9 Chronic obstructive pulmonary disease, unspecified; E11.9 Type 2 diabetes mellitus without complications; Z91.040 Latex allergy status
CPT/HCPCS: 71045; 80053; 83880; 84484; 85025; 93005; 99285; 36415-L1; 36415-TC

== ENCOUNTER → 2023-02-05 | Outpatient (CLI) | payer MEDICARE, OTHER ==
[~2023-02-05] VITALS: Ht 172.7 cm; Wt 93.0 kg
[~2023-02-05] MED LIST changes: +CYCL-448 PO; +DIPH25CA85 PO; +HYDR-4808 PO; +METF-1211 PO; +METO5TAB87 PO
[2023-02-05 14:44] VITALS: BP 139/60; PULSE 110; RESP 24; TEMP 98.5; O2SAT 96
== END | disposition home or self-care (01) ==
LOC: SRCNTR 13:44
PROVIDERS: ATTEND Internal Medicine Cardiovascular Disease
DX: I10 Essential (primary) hypertension (principal); J44.9 Chronic obstructive pulmonary disease, unspecified; I49.9 Cardiac arrhythmia, unspecified; E11.9 Type 2 diabetes mellitus without complications; I25.10 Atherosclerotic heart disease of native coronary artery without angina pectoris; E78.5 Hyperlipidemia, unspecified; Z88.8 Allergy status to other drugs, medicaments and biological substances; Z79.82 Long term (current) use of aspirin; Z79.899 Other long term (current) drug therapy
CPT/HCPCS: G0463; Z7500

== ENCOUNTER → 2023-03-18 | Outpatient (CLI) | payer MEDICARE, OTHER ==
[~2023-03-18] VITALS: Ht 167.6 cm; Wt 90.0 kg
[~2023-03-18] MED LIST changes: +CYCL-448 PO; +DIPH25CA85 PO; +HYDR-4808 PO; +METF-1211 PO; +METO5TAB87 PO
[2023-03-18 12:20] VITALS: BP 130/60; PULSE 83; RESP 16; TEMP 97.7; O2SAT 97
== END | disposition home or self-care (01) ==
LOC: SRCNTR 12:03
PROVIDERS: ATTEND Internal Medicine Pulmonary Disease
DX: J44.1 Chronic obstructive pulmonary disease with (acute) exacerbation (principal); R91.1 Solitary pulmonary nodule; I25.2 Old myocardial infarction; I25.10 Atherosclerotic heart disease of native coronary artery without angina pectoris; I10 Essential (primary) hypertension; E66.01 Morbid (severe) obesity due to excess calories; Z86.16 Personal history of COVID-19
CPT/HCPCS: G0463; Z7500

== ENCOUNTER → 2023-10-01 | Outpatient (CLI) | payer MEDICARE, OTHER ==
[~2023-10-01] VITALS: Ht 172.7 cm; Wt 95.0 kg
[~2023-10-01] MED LIST changes: -TIOT185 IH; +TIOT4MIS2 PO
[2023-10-01 14:52] VITALS: BP 109/68; PULSE 80; RESP 16; TEMP 97.8; O2SAT 96
== END | disposition home or self-care (01) ==
LOC: SRCNTR 14:18
PROVIDERS: ATTEND Internal Medicine Cardiovascular Disease
DX: Z09 Encounter for follow-up examination after completed treatment for conditions other than malignant neoplasm (principal); I25.10 Atherosclerotic heart disease of native coronary artery without angina pectoris; I49.8 Other specified cardiac arrhythmias; E11.9 Type 2 diabetes mellitus without complications; I10 Essential (primary) hypertension; E78.5 Hyperlipidemia, unspecified; J44.9 Chronic obstructive pulmonary disease, unspecified; Z95.5 Presence of coronary angioplasty implant and graft
CPT/HCPCS: G0463

== ENCOUNTER → 2023-10-03 | Outpatient (CLI) | payer MEDICARE, OTHER ==
[~2023-10-03] VITALS: Ht 167.6 cm; Wt 94.0 kg
[2023-10-03 12:27] VITALS: BP 92/53; PULSE 101; RESP 17; TEMP 98.1; O2SAT 95
== END | disposition home or self-care (01) ==
LOC: SRCNTR 10:42
PROVIDERS: ATTEND Internal Medicine Pulmonary Disease
DX: J44.1 Chronic obstructive pulmonary disease with (acute) exacerbation (principal); R91.1 Solitary pulmonary nodule; I25.2 Old myocardial infarction; I25.10 Atherosclerotic heart disease of native coronary artery without angina pectoris; I10 Essential (primary) hypertension; E66.01 Morbid (severe) obesity due to excess calories; J18.9 Pneumonia, unspecified organism; U09.9 Post COVID-19 condition, unspecified
CPT/HCPCS: G0463

== ENCOUNTER → 2023-12-03 | Outpatient (CLI) | payer MEDICARE, OTHER ==
[~2023-12-03] VITALS: Ht 172.7 cm; Wt 91.0 kg
[2023-12-03 15:09] VITALS: BP 118/53; PULSE 97; RESP 20; TEMP 99; O2SAT 97
== END | disposition home or self-care (01) ==
LOC: SRCNTR 14:42
PROVIDERS: ATTEND Internal Medicine Cardiovascular Disease
DX: I10 Essential (primary) hypertension (principal); I25.10 Atherosclerotic heart disease of native coronary artery without angina pectoris; I49.9 Cardiac arrhythmia, unspecified; E11.9 Type 2 diabetes mellitus without complications; E78.5 Hyperlipidemia, unspecified; J44.9 Chronic obstructive pulmonary disease, unspecified; Z88.8 Allergy status to other drugs, medicaments and biological substances; Z79.82 Long term (current) use of aspirin; Z79.899 Other long term (current) drug therapy
CPT/HCPCS: G0463

== ENCOUNTER → 2023-12-10 | Outpatient (CLI) | payer MEDICARE, OTHER ==
[~2023-12-10] VITALS: Ht 172.7 cm; Wt 93.0 kg
[2023-12-10 11:11] VITALS: BP 130/68; PULSE 94; RESP 18; TEMP 97.8; O2SAT 97
== END | disposition home or self-care (01) ==
LOC: SRCNTR 10:46
PROVIDERS: ATTEND Internal Medicine Pulmonary Disease
DX: J44.1 Chronic obstructive pulmonary disease with (acute) exacerbation (principal); R91.1 Solitary pulmonary nodule; I25.2 Old myocardial infarction; I10 Essential (primary) hypertension; I25.10 Atherosclerotic heart disease of native coronary artery without angina pectoris; Z86.16 Personal history of COVID-19; E66.01 Morbid (severe) obesity due to excess calories; Z79.899 Other long term (current) drug therapy; Z88.8 Allergy status to other drugs, medicaments and biological substances
CPT/HCPCS: G0463

== ENCOUNTER → 2024-03-16 | Outpatient (CLI) | payer MEDICARE, OTHER ==
[~2024-03-16] VITALS: Ht 172.7 cm; Wt 96.0 kg
[~2024-03-16] MED LIST changes: -HYDR-4808 PO
[2024-03-16 10:59] VITALS: BP 105/57; PULSE 94; RESP 18; TEMP 98.4; O2SAT 95
== END | disposition home or self-care (01) ==
LOC: SRCNTR 10:50
PROVIDERS: ATTEND Internal Medicine Pulmonary Disease
DX: J44.1 Chronic obstructive pulmonary disease with (acute) exacerbation (principal); Z86.16 Personal history of COVID-19; I25.2 Old myocardial infarction; I25.10 Atherosclerotic heart disease of native coronary artery without angina pectoris; E66.09 Other obesity due to excess calories; R91.1 Solitary pulmonary nodule; Z91.040 Latex allergy status; Z88.8 Allergy status to other drugs, medicaments and biological substances; Z79.899 Other long term (current) drug therapy
CPT/HCPCS: G0463; Z7500

== ENCOUNTER → 2024-04-16 | Outpatient (CLI) | payer MEDICARE, OTHER ==
[~2024-04-16] VITALS: Ht 172.7 cm; Wt 93.0 kg
[2024-04-16 10:06] VITALS: BP 124/68; PULSE 102; RESP 18; TEMP 98.5; O2SAT 97
== END | disposition home or self-care (01) ==
LOC: SRCNTR 09:52
PROVIDERS: ATTEND Internal Medicine Pulmonary Disease
DX: J44.1 Chronic obstructive pulmonary disease with (acute) exacerbation (principal); R91.1 Solitary pulmonary nodule; I25.2 Old myocardial infarction; E78.5 Hyperlipidemia, unspecified; I25.10 Atherosclerotic heart disease of native coronary artery without angina pectoris; I10 Essential (primary) hypertension; F32.A Depression, unspecified; E66.01 Morbid (severe) obesity due to excess calories; Z86.16 Personal history of COVID-19; Z79.82 Long term (current) use of aspirin; Z91.040 Latex allergy status; Z88.8 Allergy status to other drugs, medicaments and biological substances; Z98.890 Other specified postprocedural states; Z95.5 Presence of coronary angioplasty implant and graft; Z72.0 Tobacco use; Z79.899 Other long term (current) drug therapy
CPT/HCPCS: G0463

== ENCOUNTER → 2024-04-22 | Outpatient (CLI) | payer MEDICARE, OTHER ==
[~2024-04-22] VITALS: Ht 172.7 cm; Wt 94.0 kg
[2024-04-22 10:33] VITALS: BP 130/57; PULSE 102; RESP 20; TEMP 98.5; O2SAT 94
== END | disposition home or self-care (01) ==
LOC: SRCNTR 10:03
PROVIDERS: ATTEND Internal Medicine Cardiovascular Disease
DX: I25.10 Atherosclerotic heart disease of native coronary artery without angina pectoris (principal); Z09 Encounter for follow-up examination after completed treatment for conditions other than malignant neoplasm; I10 Essential (primary) hypertension; E11.9 Type 2 diabetes mellitus without complications; E78.5 Hyperlipidemia, unspecified; J44.9 Chronic obstructive pulmonary disease, unspecified; I49.8 Other specified cardiac arrhythmias; Z95.5 Presence of coronary angioplasty implant and graft
CPT/HCPCS: G0463

== ENCOUNTER → 2024-10-14 | Outpatient (CLI) | payer MEDICARE, OTHER ==
[~2024-10-14] VITALS: Ht 172.7 cm; Wt 88.0 kg
[~2024-10-14] MED LIST changes: +EMPA10TA3 PO; -FURO20 PO; +FURO20TA5 PO
[2024-10-14 11:51] VITALS: BP 129/76; PULSE 103; RESP 18; TEMP 97.9; O2SAT 95
== END | disposition home or self-care (01) ==
LOC: SRCNTR 11:13
PROVIDERS: ATTEND Internal Medicine Pulmonary Disease
DX: I10 Essential (primary) hypertension (principal); D50.9 Iron deficiency anemia, unspecified; E11.9 Type 2 diabetes mellitus without complications; E66.01 Morbid (severe) obesity due to excess calories; E78.5 Hyperlipidemia, unspecified; F41.9 Anxiety disorder, unspecified; I25.10 Atherosclerotic heart disease of native coronary artery without angina pectoris; I25.2 Old myocardial infarction; I70.0 Atherosclerosis of aorta; J44.1 Chronic obstructive pulmonary disease with (acute) exacerbation; K58.9 Irritable bowel syndrome, unspecified; M79.7 Fibromyalgia; M85.80 Other specified disorders of bone density and structure, unspecified site; Z79.02 Long term (current) use of antithrombotics/antiplatelets; Z79.82 Long term (current) use of aspirin; Z79.84 Long term (current) use of oral hypoglycemic drugs; Z79.899 Other long term (current) drug therapy; Z80.0 Family history of malignant neoplasm of digestive organs; Z86.16 Personal history of COVID-19; Z87.891 Personal history of nicotine dependence; Z88.8 Allergy status to other drugs, medicaments and biological substances; Z90.89 Acquired absence of other organs; Z91.041 Radiographic dye allergy status; Z95.5 Presence of coronary angioplasty implant and graft
CPT/HCPCS: G0463; Z7500

== ENCOUNTER → 2025-03-24 | Outpatient (CLI) | payer MEDICARE, OTHER ==
[~2025-03-24] VITALS: Ht 174 cm; Wt 83.1 kg
[~2025-03-24] MED LIST changes: +FLUT1AER IH
[2025-03-24 10:53] VITALS: BP 134/61; PULSE 70; RESP 13; TEMP 97.5; O2SAT 97
== END | disposition home or self-care (01) ==
LOC: SRCNTR 10:49
PROVIDERS: ATTEND Internal Medicine Cardiovascular Disease
DX: I12.9 Hypertensive chronic kidney disease with stage 1 through stage 4 chronic kidney disease, or unspecified chronic kidney disease (principal); E11.22 Type 2 diabetes mellitus with diabetic chronic kidney disease; N18.30 Chronic kidney disease, stage 3 unspecified; E66.9 Obesity, unspecified; E78.5 Hyperlipidemia, unspecified; I25.10 Atherosclerotic heart disease of native coronary artery without angina pectoris; J44.9 Chronic obstructive pulmonary disease, unspecified; Z79.51 Long term (current) use of inhaled steroids; Z79.82 Long term (current) use of aspirin; Z79.84 Long term (current) use of oral hypoglycemic drugs; Z79.899 Other long term (current) drug therapy; Z88.8 Allergy status to other drugs, medicaments and biological substances
CPT/HCPCS: G0463; Z7500

== ENCOUNTER → 2025-05-19 | Outpatient (CLI) | payer MEDICARE, OTHER ==
[~2025-05-19] VITALS: Ht 172.7 cm; Wt 81.4 kg
[~2025-05-19] MED LIST changes: +INFLUENZA VIRUS VACCINE TVS IM. ONE; +[UNRECOGNIZED DRUG - OTHER] IM. ONE
[2025-05-19 11:04] VITALS: BP 111/48; PULSE 100; RESP 18; TEMP 98.1; O2SAT 96
== END | disposition home or self-care (01) ==
LOC: SRCNTR 10:38
PROVIDERS: ATTEND Internal Medicine Cardiovascular Disease
DX: Z23 Encounter for immunization (principal); I12.9 Hypertensive chronic kidney disease with stage 1 through stage 4 chronic kidney disease, or unspecified chronic kidney disease; E11.22 Type 2 diabetes mellitus with diabetic chronic kidney disease; N18.30 Chronic kidney disease, stage 3 unspecified; I25.10 Atherosclerotic heart disease of native coronary artery without angina pectoris; E78.5 Hyperlipidemia, unspecified; J44.9 Chronic obstructive pulmonary disease, unspecified; Z79.84 Long term (current) use of oral hypoglycemic drugs; Z79.899 Other long term (current) drug therapy; Z79.82 Long term (current) use of aspirin; Z79.51 Long term (current) use of inhaled steroids; Z88.8 Allergy status to other drugs, medicaments and biological substances; Z91.040 Latex allergy status
CPT/HCPCS: 90471; G0463